=== PATIENT | female | born 2000 | race American Indian/Alaskan Native ===

== ENCOUNTER 2020-03-30 20:10 | Emergency (ER) | payer MEDICAID ==
[2020-03-30 20:49] LABS: Bacteria,Urine 2+ /HPF (Negative); Bilirubin,Urine NEG (Negative); Blood,Urine LG (Negative); Color,Urine Yellow (Yellow); Mucus,Urine 3+ /HPF; Sperm,Urine FEW /HPF (NP)
--- NOTE | 2020-03-30 21:27 | Emergency Department Report ---
ED General Adult HPI - General Chief complaint: Abdominal Pain Stated complaint: CRAMPS Time Seen by Provider: 03/30/20 21:21 Source: patient, EMS Mode of arrival: Ambulatory Limitations: No Limitations - History of Present Illness Initial comments: 20-year-old [place] female with emerge department complaining of having an issue of an anxiety flareup prior to going to work due to a myriad of stressors in life events taking place at current. During that time she reported having some pelvic pain and cramping that radiated across her lower abdomen and having had missed the. So was unsure what the cause was she reported no hematuria no constipation or diarrhea no fever chills or sweats no nausea or vomiting. At this present time states that her symptoms are 100% resolved. Consistency: constant Improves with: none Worsens with: none Associated Symptoms: denies other symptoms. denies: diaphoresis, loss of appetite, malaise, nausea/vomiting, syncope, weakness Treatments Prior to Arrival: none - Related Data Allergies Allergy/AdvReac Type Severity Reaction Status Date / Time No Known Allergies Allergy Unverified 03/30/20 20:15 ED Review of Systems ROS: Stated complaint: CRAMPS Other details as noted in HPI Comment: All other systems reviewed and negative ED Past Medical Hx - Past Medical History Previous Medical History?: No - Surgical History Past Surgical History?: No - Social History Smoking Status: Never Smoker Substance Use Type: None ED Physical Exam - General Limitations: No Limitations General appearance: alert, in no apparent distress - Head Head exam: Present: atraumatic, normocephalic - Eye Eye exam: Present: normal appearance, PERRL, EOMI Pupils: Present: normal accommodation - ENT ENT exam: Present: mucous membranes moist - Neck Neck exam: Present: normal inspection - Respiratory Respiratory exam: Present: normal lung sounds bilaterally. Absent: respiratory distress - Cardiovascular Cardiovascular Exam: Present: regular rate, normal rhythm. Absent: systolic murmur, diastolic murmur, rubs, gallop - GI/Abdominal GI/Abdominal exam: Present: soft, normal bowel sounds - Extremities Exam Extremities exam: Present: normal inspection - Back Exam Back exam: Present: normal inspection - Neurological Exam Neurological exam: Present: alert, oriented X3 - Psychiatric Psychiatric exam: Present: normal affect, normal mood - Skin Skin exam: Present: warm, dry, intact, normal color. Absent: rash ED Course Vital Signs 03/30/20 03/30/20 03/30/20 20:13 22:36 22:37 Temperature 98.6 F 98.1 F Pulse Rate 112 H 100 H Respiratory 18 Rate Blood Pressure 124/48 98/44 O2 Sat by Pulse 98 100 Oximetry ED Medical Decision Making - Radiology Data Radiology results: report reviewed Print Report Referring Physician:FLASH JADEPatient Name:DIO STORMPatient ID:[id number] of :[id number]:FemaleAccession:[id number] Date:[id number] Status:Finalized Findings [facility] [address] [place] [address] Ultrasound Report Signed Patient: DIO STORM MR#: [id number] : 2000 Acct:[id number] Age/Sex: 20 / F ADM Date: 03/30/20 Loc: ED Attending Dr: Ordering Physician: ANTHONY JOHNS Date of Service: 03/30/20 Procedure(s): US OB <= 14 weeks fetus Accession Number(s): [id number] cc: ANTHONY JOHNS Limited OB ultrasound INDICATION: Pelvic pain, FINDINGS: Transabdominal imaging is performed. Small gestational sac with yolk sac is identified within the uterine cavity. This measures 6.2 mm correlating to as 5 week 2 day gestation. No definite pole is seen. On at least one of the images there is question of a yolk sac present. There is minimal free fluid. The ovaries are normal in size measuring 3.7 cm on the right and 2.5 cm on the left. There is a 1 cm cyst in the left ovary. No adnexal masses are seen. IMPRESSION: There is a small collection of fluid in the uterus characteristic of a gestational sac. There may be a yolk sac present but no definite pole. This would correlate to a 5 week 2 day gestation. Follow-up ultrasound should be obtained as clinically warranted to determine if there is a viable . Signer Name: Josafat Martinez MD Signed: 03/30/2020 10:42 PM Workstation Name: [id number] Transcribed By: SS Dictated By: Josafat Martinez MD Electronically Authenticated By: Josafat Martinez MD Signed Date/Time: 03/30/202241 DD/ 38 TD/TT: - Medical Decision Making Be sure to follow-up with an [facility] as you would found to be . Ultrasound shows a 5 weeks and 2 days is recommended she get reevaluated in 1 week the abdominal pain is resolved no evidence of any emergent conditions found with examination today. This patient presents with abdominal pain of unclear etiology. Their evaluation has not identified a emergent etiology for the abdominal pain. Specifically, given the very benign exam, normal laboratory studies, and lack of significant risk factors, I have a very low suspicion for appendicitis, ischemic bowel, bowel perforation, or any other life threatening disease. I have discussed with the patient the level of uncertainty with undifferentiated abdominal pain and clearly explained the need to follow-up as noted on the discharge instructions, or return to the Emergency Department immediately if the pain worsens, develops fever, persistent and uncontrollable vomiting, or for any new symptoms or concerns. I discussed with the patient that this presentation today for abdominal pain could represent a significant risk for an acute abdominal process. Although the tests in the ED were essentially normal, there is still a possibility of a process such as appendicitis, diverticulitis, cholecystitis, ulcer, early bowel obstruction, mesenteric ischemia, kidney stone, or even kidney infection which could subsequently cause disability or . The patient understands that they must return within 24 hours for a recheck or see their physician within 24 hours for re-exam due to the possibility of significant surgical or medical process. Critical care attestation.: If time is entered above; I have spent that time in minutes in the direct care of this critically ill patient, excluding procedure time. ED Disposition Clinical Impression: , incidental, Anxiety, Abdominal pain Disposition: DC-01 TO HOME OR SELFCARE Is pt being admited?: No Does the pt Need Aspirin: No Condition: Stable Instructions: Abdominal Pain (ED) Referrals: [facility] [Provider Group] - 3-5 Days
[2020-03-30 22:37] VITALS: BP 98/44
--- NOTE | 2020-03-30 22:47 | Ultrasound Report ---
Limited OB ultrasound INDICATION: Pelvic pain, FINDINGS: Transabdominal imaging is performed. Small gestational sac with yolk sac is identified within the uterine cavity. This measures 6.2 mm cor relating to as 5 week 2 day gestation. No definite pole is seen. On at least one of the images there is question of a yolk sac present. There is minimal free fluid. The ovaries are normal in size measuring 3.7 cm on the right and 2.5 cm on the left. There is a 1 cm cyst in the left ovary. No adnexal masses are seen. IMPRESSION: There is a small collection of fluid in the uterus characteristic of a gestational sac. T here may be a yolk sac present but no definite pole. This would correlate to a 5 week 2 day ges tation. Follow-up ultrasound should be obtained as clinically warranted to determine if there is a vi able . Signer Name: Josafat Martinez MD Signed: 03/30/2020 10:42 PM Workstation Name: [id number]
== END 2020-03-30 23:41 | disposition home or self-care (01) ==
LOC: ED 20:10
DX: O26.891 Other specified pregnancy related conditions, first trimester (principal); R10.2 Pelvic and perineal pain; F41.9 Anxiety disorder, unspecified; Z3A.01 Less than 8 weeks gestation of pregnancy
CPT/HCPCS: 36415; 76801; 81001; 84702; 84703; 87086